=== PATIENT | male | born 1990 | race Caucasian/White ===

== ENCOUNTER 2017-06-24 20:36 | Emergency (ER) | payer MEDICAID ==
[~2017-06-24] VITALS: Ht 175.3 cm; Wt 117.8 kg
[2017-06-24 21:15] VITALS: BP 140/67
[2017-06-24] MEDS ORDERED: orphenadrine citrate 60mg/2ml inj. IM ONE (22:10)
[2017-06-24] MEDS ORDERED: NAPR-56 PO (23:20)
== END 2017-06-24 23:32 | disposition home or self-care (01) ==
LOC: ER 20:38
DX: M54.2 Cervicalgia (principal); M62.838 Other muscle spasm
CPT/HCPCS: 72040; 96372; 99284; J2360

== ENCOUNTER 2017-10-03 00:35 | Emergency (ER) | payer MEDICAID ==
[~2017-10-03] VITALS: Ht 175.3 cm; Wt 116.5 kg
[2017-10-03 00:49] VITALS: BP 159/101
[2017-10-03] MEDS ORDERED: CLIN150C2 PO (01:42)
[2017-10-03] MEDS ORDERED: HYDR-565 PO (01:42)
[2017-10-03] MEDS ORDERED: ONDA4TAB9 PO (01:42)
[2017-10-03] MEDS ORDERED: acetaminophen 325mg tablet PO ONE (01:45)
== END 2017-10-03 01:58 | disposition home or self-care (01) ==
LOC: ER 00:35
DX: K04.7 Periapical abscess without sinus (principal); K02.9 Dental caries, unspecified; Z88.1 Allergy status to other antibiotic agents
CPT/HCPCS: 99283

== ENCOUNTER 2018-02-25 08:33 | Emergency (ER) | payer MEDICAID ==
[~2018-02-25] VITALS: Ht 180.3 cm; Wt 106.0 kg
[2018-02-25 08:51] VITALS: BP 147/102
[2018-02-25] MEDS ORDERED: IBUP-1985 PO (09:21)
== END 2018-02-25 09:33 | disposition home or self-care (01) ==
LOC: ER 08:33
DX: M79.674 Pain in right toe(s) (principal); Z88.1 Allergy status to other antibiotic agents; Z79.899 Other long term (current) drug therapy
CPT/HCPCS: 73660; 99283; 99284